=== PATIENT | male | born 1995 | race Hispanic/Latino ===

== ENCOUNTER 2024-09-18 09:48 | Emergency (ER) | payer OTHER ==
[~2024-09-18] VITALS: Ht 180.3 cm; Wt 146.2 kg
[2024-09-18 09:53] VITALS: TEMP 98.3
[2024-09-18 10:06] LABS: APPEARANCE,URINE CLEAR (CLEAR); GLUCOSE, URINE (UA) NEGATIVE (NEGATIVE); LEUKOCYTE ESTERASE ,URINE NEGATIVE Leu/uL (NEGATIVE); NITRATE,URINE NEGATIVE (NEGATIVE); OCCULT BLOOD,URINE LARGE (NEGATIVE)
[2024-09-18 10:08] LABS: ADD UA MICROSCOPIC YES
[2024-09-18 10:08] LABS: IMMATURE GRANULOCYTE ABSOLUTE 0.06 K/uL (0-1); NUCLEATED RED BLOOD CELLS 0.0 % (0.0-0.19); PLATELET COUNT (AUTO) 268 K/uL (130-400); RED BLOOD CELL COUNT(AUTO) 5.17 MIL/uL (4.50-6.20); RED CELL DISTRIBUTION WIDTH 12.2 % (11.0-15.5); WHITE BLOOD COUNT (AUTO) 11.8 K/uL (4.8-10.8)
[2024-09-18 10:11] LABS: SQUAMOUS EPITHELIAL CELL,UR RARE /HPF (0-2)
[2024-09-18 10:16] LABS: CREATININE 0.7 mg/dL (0.5-1.3); GLOMERULAR FILTR. RATE CALC 130.0 mL/min (>90); GLUCOSE,RANDOM 106.0 mg/dL (70-105); SODIUM SERUM 140.0 mmol/L (136-145); UREA NITROGEN, BLOOD 9.0 mg/dL (7-18)
--- NOTE | 2024-09-18 11:09 | ERN ---
General Chief Complaint: Abdominal Pain Stated Complaint: ABDOMINAL PAIN Time Seen by MD: 09:49 Source: patient History of Present Illness Initial Comments Patient is a 29-year-old gentleman coming in complaining of right lower quadrant pain. Patient states that the pain began earlier in the morning. The pain waxes and wanes in his quantified at 6/10 when present. He describes the pain as sharp no radiation. Allergies: Coded Allergies: No Known Allergies (Unverified Allergy, Unknown, 10/15/14) Home Meds No Active Prescriptions or Reported Meds Past Medical History Past Medical History: No Pertinent History Medical History Other: denies pmhx Past Surgical History: None ROS Dictation CONSTITUTIONAL: No chills, no fever, no weakness, no diaphoresis, no malaise. HEAD/FACE: No signs of trauma. EENT: No eye pain, no blurred vision, no tearing, no double vision, no ear pain, no ear discharge, no nose pain, no nasal congestion, no throat pain, no throat swelling, no mouth pain. RESPIRATORY: No cough, no orthopnea, no SOB, no stridor, no wheezing. CARDIOVASCULAR: No chest pain, no edema, no palpitations, no syncope. GASTROINTESTINAL/ABDOMINAL: No abdominal pain, no constipation, no diarrhea, no nausea, no vomiting. GENITOURINARY: No abnormal discharge, no dysuria, no frequent urination, no hematuria. No complaints of pain in the genitals. MUSCULOSKELETAL: No back pain, no gout, no joint pain, no joint swelling, no muscle pain, no muscle stiffness, no neck pain. INTEGUMENTARY: No change in color, no change in hair/nails, no dryness, no lesion, no lumps, no rash. NEUROLOGICAL/PSYCH: No anxiety, not depressed, no emotional problem, no headache, no numbness, no pre-existing deficit, no history of seizures, no tremors, no weakness. HEMATOLOGIC/LYMPHATIC: Not anemic, no history of blood clots, no apparent bleeding, no bruising, glands not swollen. All Systems Negative, Except as Noted. Physical Exam Physical Exam Dictation VITAL SIGNS: Reviewed. GENERAL APPEARANCE: Alert, oriented x3, no acute distress, obese. HEAD AND FACE: Non-traumatic. EYES: PERRL, pink conjunctivas, eyelid no trauma, anterior chamber clear. EARS: Pinnas intact and no signs of trauma or erythema. Ear canals clear and no discharge. TMs no erythema. NOSE: No discharge, no bleeding. OROPHARYNX: Mouth normal, teeth no caries, tongue pink. Pharynx clear, no erythema. Tonsils no exudates, no abscesses noted. Mucous membrane moist. NECK: Supple, non-tender, no thyromegaly, no masses, no JVD, no bruits. BREAST: Deferred. CHEST: No tenderness, no crepitus, no paradoxical movement, no retractions. LUNGS: Clear, well-ventilated, symmetric, no rales, no wheezing, no rhonchi, no stridor, good breath sounds bilaterally. HEART: Regular rate, regular rhythm, no murmur, no gallops. VASCULAR: No peripheral edema. ABDOMEN: Soft, positive bowel sounds, nondistended, no guarding, right lower quadrant tenderness, no rebound, no masses no hepatomegaly, no splenomegaly, no Albright's sign, no hernias. RECTAL: Deferred. GENITAL: Deferred. NEUROLOGICAL: Normal speech, gross motor function intact, gross sensory function intact. MUSCULOSKELETAL: Neck nontender, full range of motion, back nontender, full range of motion. EXTREMITIES: Nontender, full range of motion. SKIN: Color pink, dry, no turgor, no rash, no lacerations, no abrasions, no contusions. LYMPHATICS: Deferred. Results Laboratory and Microbiology Lab and Micro Result Laboratory Tests Test 09/18/24 09:51 09/18/24 10:03 Urine Color YELLOW (YELLOW) Urine Appearance CLEAR (CLEAR) Urine pH 5.5 (5.0-8.0) Urine Specific [place] 1.018 (1.001-1.031) Urine Protein NEGATIVE mg/dL (NEGATIVE) Urine Glucose (UA) NEGATIVE mg/dL (NEGATIVE) Urine Ketones NEGATIVE mg/dL (NEGATIVE) Urine Occult Blood LARGE (NEGATIVE) H Urine Nitrate NEGATIVE (NEGATIVE) Urine Bilirubin NEGATIVE mg/dL (NEGATIVE) Urine Urobilinogen 0.2 mg/dL (0.2-1.0) Urine Leukocyte Esterase NEGATIVE Jocelynn/uL Urine RBC TNTC /HPF (0-1) H Urine WBC 0-1 /HPF (0-1) Urine Squamous Epithelial Cells RARE /HPF (0-2) Urine Bacteria RARE /HPF (None Seen) White Blood Count 11.8 K/uL (4.8-10.8) H Red Blood Count 5.17 MIL/uL (4.50-6.20) Hemoglobin 15.5 g/dL (14.0-18.0) Hematocrit 45.7 % (42-54) Mean Corpuscular Volume 88.4 fL (79-99) Mean Corpuscular Hemoglobin 30.0 pg (27.0-33.0) Mean Corpuscular Hemoglobin Concent 33.9 g/dL (32.0-36.0) Red Cell Distribution Width 12.2 % (11.0-15.5) Platelet Count 268 K/uL (130-400) Mean Platelet Volume 9.6 fL (7.5-10.5) Immature Granulocyte % (Auto) 0.5 % (0-1) Neutrophils (%) (Auto) 67.0 % (40.0-77.0) Lymphocytes (%) (Auto) 23.4 % (21.0-51.0) Monocytes (%) (Auto) 7.0 % (3.0-13.0) Eosinophils (%) (Auto) 1.5 % (0.0-8.0) Basophils (%) (Auto) 0.6 % (0.0-5.0) Neutrophils # (Auto) 7.9 K/uL (1.8-7.7) H Lymphocytes # (Auto) 2.8 K/uL (1.0-4.8) Monocytes # (Auto) 0.8 K/uL (0.1-1.0) Eosinophils # (Auto) 0.18 K/uL (0.00-0.70) Basophils # (Auto) 0.07 K/uL (0.00-0.20) Absolute Immature Granulocyte (auto 0.06 K/uL (0-1) Nucleated Red Blood Cells 0.0 % (0.0-0.19) Sodium Level 140 mmol/L (136-145) Potassium Level 4.0 mmol/L (3.5-5.1) Chloride Level 103 mmol/L (101-111) Carbon Dioxide Level 32 mmol/L (21-32) Blood Urea Nitrogen 9 mg/dL (7-18) Creatinine 0.7 mg/dL (0.5-1.3) Glomerular Filtration Rate Calc 130 mL/min (>90) Random Glucose 106 mg/dL (70-105) H Total Calcium 8.9 mg/dL (8.5-10.1) Labs Reviewed?: Yes EKG/XRAY/US/CT/MRI CT Scan Comment [facility] [address] [place] [address] IMAGING REPORT Signed PATIENT: SHEY ANDRADE JR MR#: [id number] : 1995 SEX: M AGE: 29 LOCATION: [facility] ORDER [id number] STATUS: REG ER REPORT#: [id number] SERVICE 17 REASON: rlq pain ORDERING PHYSICIAN: WALDO JOSEPH MD PROCEDURE: ABD PEL WO - CT ABDOMEN/PELVIS W/O CONTRAST EXAM: CT Abdomen and Pelvis without IV contrast CLINICAL HISTORY: Right lower quadrant pain. TECHNIQUE: Thin collimated axial CT images of the abdomen and pelvis were obtained with sagittal and coronal reformatted images also submitted. CT scan is done according to ALARA (As Low As Reasonably Achievable). CONTRAST: None. COMPARISON: None. FINDINGS: Unremarkable visualized lung parenchyma. No focal abnormality within the gallbladder, pancreas, spleen, or adrenals. Mild diffuse fatty infiltration of the liver. A tiny 2 mm obstructive calculus at the right ureterovesical junction with mild proximal hydroureter and mild hydronephrosis in the right kidney. No renal calculus. There is no obvious bowel wall thickening. Bowel loops are normal in caliber without evidence of obstruction or ileus. The appendix is normal. There is no abnormality within the urinary bladder. Unremarkable reproductive organs. Abdominal and pelvic vessels are patent. No lymphadenopathy. No free fluid. There is no acute osseous abnormality. IMPRESSIONS: Tiny obstructive calculus at the right ureterovesical junction with mild back pressure changes. No acute appendicitis. /[place] DICTATED BY: GRADY BURNETT Jr., MD DATE: 09/18/241219 ELECTRONICALLY SIGNED BY: GRADY BURNETT Jr., MD DATE: 09/18/241219 MDM MDM: Differential diagnosis: Kidney stone, appendicitis, gastroenteritis, Rationale: Tests considered and ordered secondary to shared decision making include: Previous outside records reviewed: Old ER visits. Risk of complication and/or morbidity or mortality of patient management: None Medications-Per medication reconciliation Need for hospitalization: Patient does not meet criteria for hospitalization. Patient is a 29-year-old gentleman coming in complaining of right lower quadrant pain. Due to the location of the pain in the appendicitis had to be ruled out. Laboratory workup within normal limits CT did not disclose acute findings. Patient will be discharged with a diagnosis of ureterolithiasis. ED Course Orders Procedure Category Date Status Time Cbc With Differential LAB 09/18/24 Complete 09:54 Urinalysis Profile LAB 09/18/24 Complete 09:54 Basic Metabolic Panel LAB 09/18/24 Complete 09:54 Ct Abdomen/Pelvis W/O CT 09/18/24 Resulted Contrast 10:18 Vital Signs Date Time Temp Pulse Resp B/P (MAP) Pulse Ox O2 Delivery O2 Flow Rate FiO2 09/18/24 09:53 98.2 73 18 161/95 99 Room Air* 0 21 09/18/24 09:50 98.2 73 18 161/95 99 DX & DISP Disposition: Discharge Departure Impression: Primary Impression: Ureterolithiasis Condition: Stable Scripts Tamsulosin HCl (Flomax) 0.4 Mg Cap.er.24h 1 CAP PO DAILY for 7 Days, #7 CAP 0 Refills Prov: WALDO JOSEPH MD 09/18/24 Cephalexin Monohydrate (Keflex) 500 Mg Cap 1 CAP PO BID for 10 Days, #20 CAP 0 Refills Prov: WALDO JOSEPH MD 09/18/24 Ketorolac Tromethamine (Ketorolac Tromethamine) 10 Mg Tablet 1 TAB PO Q6HPRN PRN for pain for 5 Days, #20 TAB 0 Refills Prov: WALDO JOSEPH MD 09/18/24 Additional Instructions: FOLLOW-UP WITH PRIMARY CARE PROVIDER IN 1 TO 2 DAYS. TAKE MEDICATIONS DIRECTED HERE IN THE EMERGENCY ROOM. OKAY TO CONTINUE HOME MEDICATIONS UNLESS OTHERWISE DISCUSSED DURING YOUR VISIT IN THE EMERGENCY ROOM TODAY. RETURN TO YOUR NEAREST EMERGENCY ROOM IF SYMPTOMS WORSEN OR IF THERE IS NO IMPROVEMENT. CALL 911 IF YOU NEED IMMEDIATE ASSISTANCE. TAKE TYLENOL ONIE-LFX-HIPWSUV NEEDED AND IF NO CONTRAINDICATIONS ARE PRESENT. INCREASE ORAL HYDRATION. A WOUND CULTURE OR URINE CULTURE WAS ORDERED HERE IN THE EMERGENCY ROOM DEPARTMENT PLEASE FOLLOW-UP WITH PRIMARY CARE PROVIDER AND ADVISE THEM TO GET REPORTS FROM OUR FACILITY. IF YOU HAD ANY MELL WRAP/SPLINTS THAT WERE APPLIED HERE, PLEASE DO NOT REMOVE THEM UNTIL YOU SEE YOUR PRIMARY CARE OR SPECIALTY. Referrals: Referrals: JT MARTINEZ (PCP) HOPE KENNEY MD Time of Disposition: 11:28 WALDO JOSEPH MD Sep 18, 2024 11:09
--- NOTE | 2024-09-18 11:21 | HMCIMG ---
EXAM: CT Abdomen and Pelvis without IV contrast CLINICAL HISTORY: Right lower quadrant pain. TECHNIQUE: Thin collimated axial CT images of the abdomen and pelvis were obtained with sagittal and coronal reformatted images also submitted. CT scan is done according to ALARA (As Low As Reasonably Achievable). CONTRAST: None. COMPARISON: None. FINDINGS: Unremarkable visualized lung parenchyma. No focal abnormality within the gallbladder, pancreas, spleen, or adrenals. Mild diffuse fatty infiltration of the liver. A tiny 2 mm obstructive calculus at the right ureterovesical junction with mild proximal hydroureter and mild hydronephrosis in the right kidney. No renal calculus. There is no obvious bowel wall thickening. Bowel loops are normal in caliber without evidence of obstruction or ileus. The appendix is normal. There is no abnormality within the urinary bladder. Unremarkable reproductive organs. Abdominal and pelvic vessels are patent. No lymphadenopathy. No free fluid. There is no acute osseous abnormality. IMPRESSIONS: Tiny obstructive calculus at the right ureterovesical junction with mild back pressure changes. No acute appendicitis. /[place]
[2024-09-18] MEDS ORDERED: CEPH500B PO (11:31)
[2024-09-18] MEDS ORDERED: TAMS-55 PO (11:31)
[2024-09-18] MEDS ORDERED: KETO10TA2 PO (11:31)
[2024-09-18] MEDS: 0.9%NACL 1000ML 1,000 ML IV ONE (11:39)
[2024-09-18 12:58] VITALS: BP 127/84; PULSE 78; RESP 18; O2SAT 99
== END 2024-09-18 13:00 | disposition home or self-care (01) ==
LOC: EDH 09:48
DX: N20.1 Calculus of ureter (principal)
CPT/HCPCS: 99285; 74176; 96374; 96361; 80048; 85025; 81001; 36415; J1885; J7030